=== PATIENT | female | born 1990 | race African-American/Black ===

== ENCOUNTER → 2025-09-08 | Outpatient (CLI) | payer OTHER ==
[~2025-09-08] MED LIST: HYDROXYZINE HCL25 MG PO; NAPROSYN500 MG PO
[2025-09-08 07:26] LABS: BASO # 0.0 10*3/uL (0.0-0.1); BASO % 0.4 % (0.0-1.0); EOS # 0.1 10*3/uL (0.0-0.4); EOS % 1.4 % (1.0-4.0); MEAN CELL VOLUME 81.5 fl (81.0-99.0); MEAN CORPUSCULAR HGB 26.2 pg (27.0-31.0); MEAN PLATELET VOLUME 11.3 fl (9.6-12.3); MONO # 0.4 10*3/uL (0.1-1.0); MONO % 7.4 % (3.0-9.0); NEUT # 3.0 10*3/uL (2.3-7.9); NEUT % 54.5 % (47.0-73.0); NUCLEATED RED BLOOD CELL 0.0 % (0.0-0.0); NUCLEATED RED BLOOD CELL 0.0 10*3/uL (0.0-0.0); PLATELET COUNT AUTOMATED 194 10*3/uL (130-400); RED CELL DISTRI WIDTH 13.6 % (0-14.5)
[2025-09-08 07:49] LABS: BUN 9 mg/dl (9-23); SGPT/ALT 16 U/L (5-49)
[2025-09-10 14:08] LABS: ACTIVATED PROTEIN C 2.7 ratio (2.2-3.5); ANTI-THROMBIN III ACTIVITY 115.0 % (75-135); PLASMIN0GEN ACTIVITY 124.0 % (70-150); PROTEIN S - FUNCTIONAL 78.0 % (63-140)
== END | disposition home or self-care (01) ==
LOC: LAB 07:07
PROVIDERS: ATTEND Nurse Practitioner Family
DX: R06.02 Shortness of breath (principal); F41.9 Anxiety disorder, unspecified; Z86.711 Personal history of pulmonary embolism

== ENCOUNTER 2025-09-10 14:32 | Emergency (ER) | payer OTHER ==
[~2025-09-10] VITALS: Ht 175.2 cm; Wt 97.5 kg
[2025-09-10 15:10] LABS: BASO # 0.0 10*3/uL (0.0-0.1); BASO % 0.4 % (0.0-1.0); EOS # 0.1 10*3/uL (0.0-0.4); EOS % 0.7 % (1.0-4.0); MEAN CELL VOLUME 80.6 fl (81.0-99.0); MEAN CORPUSCULAR HGB 26.2 pg (27.0-31.0); MEAN PLATELET VOLUME 11.3 fl (9.6-12.3); MONO # 0.4 10*3/uL (0.1-1.0); MONO % 5.9 % (3.0-9.0); NEUT # 4.1 10*3/uL (2.3-7.9); NEUT % 58.1 % (47.0-73.0); NUCLEATED RED BLOOD CELL 0.0 % (0.0-0.0); NUCLEATED RED BLOOD CELL 0.0 10*3/uL (0.0-0.0); PLATELET COUNT AUTOMATED 223 10*3/uL (130-400); RED CELL DISTRI WIDTH 13.9 % (0-14.5)
[2025-09-10 15:52] LABS: BILIRUBIN Negative (Negative); BLOOD Negative (Negative); CLARITY Clear (Clear); COLOR Yellow (Yellow); KETONE Negative (Negative); LEUKO ESTERASE Negative (Negative); NITRITE Negative (Negative); PH 7.5 (4.5-8.0); SPECIFIC GRAVITY <= 1.005 (1.001-1.030); UROBILINOGEN 0.2 E.U./dl (0.0-1.0)
[2025-09-10 16:10] LABS: BUN 9 mg/dl (9-23)
[2025-09-10 16:24] LABS: BACTERIA TRACE; WBC 0-2 wbc/hpf (0-5)
[2025-09-10] MEDS ORDERED: HYDROXYZINE HCL25 MG PO (17:01)
[2025-09-10] MEDS ORDERED: NAPROSYN500 MG PO (17:01)
[2025-09-10] MEDS ORDERED: hydrOXYzine hydrochloride 50 MG/ML VIAL IM ONE (17:05)
[2025-09-10] MEDS ORDERED: ALBUTEROL 8 GM INHALER INH ONE (17:05)
== END 2025-09-10 17:17 | disposition home or self-care (01) ==
LOC: ED 14:32
PROVIDERS: Emergency Medicine
DX: F41.9 Anxiety disorder, unspecified (principal); J40 Bronchitis, not specified as acute or chronic; R42 Dizziness and giddiness; Z20.822 Contact with and (suspected) exposure to COVID-19